=== PATIENT | female | born 1965 | race Caucasian/White ===

== ENCOUNTER → 2018-02-23 | Outpatient (CLI) | payer MEDICARE ==
[~2018-02-23] MED LIST: AC500T PO; ALPR.25T PO; ALPR.5T PO; AMIT25TA9 PO; HYDR-2890 PO; IBUP-1773 PO; LISI40TA PO; MORP60TA28 PO; MUPI1OIN5 NS; TAMO20TA2 PO; TRAM50TA2 PO
--- NOTE | 2018-02-23 19:05 | Diagnostic Imaging Report ---
INDICATION: History of right mastectomy for right breast carcinoma. EXAMINATION: Sonographic interrogation of the right chest wall and mastectomy site was performed. FINDINGS: No solid or cystic mass is seen. Right axilla does show two small lymph nodes, measuring approximate 5-6 mm in size. No pathologically enlarged lymph nodes are identified. IMPRESSION: Unremarkable right axillary and right chest wall ultrasound. Dictated by: Dictated on workstation # [id number]
--- NOTE | 2018-02-23 19:06 | Diagnostic Imaging Report ---
INDICATION: Routine screening. EXAMINATION: 2D and 3D unilateral left screening mammography was performed with CAD. COMPARISON: Prior mammogram from 11/28/2013 and 04/04/2012. FINDINGS: Left breast is heterogeneously dense, limiting the sensitivity of mammography. No dominant mass or malignant appearing microcalcifications are seen. The left axilla is unremarkable. IMPRESSION: BI-RADS category 1. No mammographic features suspicious for malignancy are identified. Dictated by: Dictated on workstation # [id number]
== END ==
LOC: RAD 10:33
PROVIDERS: ATTEND Nurse Practitioner Family
DX: Z12.31 Encounter for screening mammogram for malignant neoplasm of breast (principal); Z85.3 Personal history of malignant neoplasm of breast; Z90.11 Acquired absence of right breast and nipple